=== PATIENT | female | born 1995 | race Two or more races ===

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

== ENCOUNTER 2017-05-04 08:03 | Emergency (ER) | payer MEDICAID ==
[~2017-05-04] VITALS: Ht 165.1 cm; Wt 63.5 kg
[2017-05-04 08:51] VITALS: BP 118/77
[2017-05-04] MEDS ORDERED: KETOROLAC TROMETH 60MG/2ML VIAL IM ONE (09:15)
[2017-05-04] MEDS ORDERED: cefTRIAXone SOD 1,000 MG VL IM ONE (09:15)
== END 2017-05-04 09:32 | disposition home or self-care (01) ==
LOC: ER 08:03
DX: N39.0 Urinary tract infection, site not specified (principal); N12 Tubulo-interstitial nephritis, not specified as acute or chronic; J45.909 Unspecified asthma, uncomplicated; Z87.440 Personal history of urinary (tract) infections
CPT/HCPCS: 81002; 96372; 99284; J0696; J1885

== ENCOUNTER 2019-03-10 19:45 | Emergency (ER) | payer SELFPAY ==
[~2019-03-10] VITALS: Ht 165.1 cm; Wt 63.5 kg
[2019-03-10 22:10] LABS: Urine Bacteria MOD /hpf (None Seen); Urine Blood TRACE /uL (Negative); Urine Mucus FEW (None Seen); Urine WBC 178 /hpf (0 - 5)
[2019-03-10 23:50] VITALS: BP 129/82
== END 2019-03-11 00:36 | disposition home or self-care (01) ==
LOC: ER 19:45
DX: N39.0 Urinary tract infection, site not specified (principal); J45.909 Unspecified asthma, uncomplicated; Z79.899 Other long term (current) drug therapy
CPT/HCPCS: 81001

== ENCOUNTER 2020-05-16 21:38 | Emergency (ER) | payer MEDICAID ==
[~2020-05-16] VITALS: Ht 165.1 cm; Wt 79.4 kg
[2020-05-17] MEDS ORDERED: ONDANSETRON ODT 4 MG TAB PO ONE
[2020-05-17] MEDS ORDERED: ACETAMINOPHEN/CODEINE#3 (300/30mg) TAB PO ONE
[2020-05-17 01:12] VITALS: BP 116/66
== END 2020-05-17 01:24 | disposition home or self-care (01) ==
LOC: ER 21:40
DX: H60.91 Unspecified otitis externa, right ear (principal); J45.909 Unspecified asthma, uncomplicated; Z32.02 Encounter for pregnancy test, result negative
CPT/HCPCS: 81025; 99283; Q0162

== ENCOUNTER 2020-07-18 11:22 | Emergency (ER) | payer MEDICAID ==
[~2020-07-18] VITALS: Ht 165.1 cm; Wt 81.6 kg
[2020-07-18] MEDS ORDERED: cefTRIAXone SOD 1,000 MG VL IM ONE (12:30)
[2020-07-18] MEDS ORDERED: SODIUM CHLORIDE 0.9% 1,000 ML IV ONE (13:30)
[2020-07-18] MEDS ORDERED: cefTRIAXone 1GM/50ML D5W 50 ML IV ONE (13:30)
[2020-07-18] MEDS ORDERED: KETOROLAC TROMETH 30 MG/ML 1ML VIAL IV ONE (14:30)
[2020-07-18 15:01] VITALS: BP 115/60
== END 2020-07-18 15:06 | disposition home or self-care (01) ==
LOC: ER 11:22
DX: J03.80 Acute tonsillitis due to other specified organisms (principal); B96.89 Other specified bacterial agents as the cause of diseases classified elsewhere; J45.909 Unspecified asthma, uncomplicated
CPT/HCPCS: 96365; 96375; 99284; J0696; J1885; J7030

== ENCOUNTER 2021-09-14 01:20 | Emergency (ER) | payer MEDICAID ==
[~2021-09-14] VITALS: Ht 165.1 cm; Wt 80.0 kg
[2021-09-14 02:00] VITALS: BP 119/69
[2021-09-14] MEDS ORDERED: OXYCODONE W/ ACETAMINOPHEN 5/325MG TABLET PO ONE (02:15)
[2021-09-14] MEDS ORDERED: ONDANSETRON ODT 4 MG TAB PO ONE (02:15)
[2021-09-14 06:45] LABS: Urine Bacteria NONE SEEN /hpf (None Seen); Urine Blood Negative /uL (Negative); Urine Mucus FEW (None Seen); Urine Specific Gravity 1.029 (1.001-1.035); Urine WBC 9 /hpf (0 - 5)
== END 2021-09-14 06:35 | disposition left against medical advice (07) ==
LOC: ER 01:31
DX: R10.9 Unspecified abdominal pain (principal); R11.2 Nausea with vomiting, unspecified; Z53.21 Procedure and treatment not carried out due to patient leaving prior to being seen by health care provider
CPT/HCPCS: 74176; 81001